=== PATIENT | male | born 1930 | race Caucasian/White ===

== ENCOUNTER → 2016-07-10 | Outpatient (CLI) | payer MEDICARE, BC ==
[~2016-07-10] MED LIST: ACET-732 PO; ASPI-611 PO; BENA40TA PO; CEPH-583 PO; DOCU-129 PO; FURO-154 PO; LATA2.5D6 BOTH EYES; LEVO100T85 PO; LINA145C PO; MEMA28CA PO; METF-203 PO; METO50TA5 PO; ONDA4TAB7 PO; RIVA3CAP5 PO; ROBITUSSIN DM PO; SENN-111 PO
[2016-07-10 07:15] LABS: ANION GAP 10 MEQ/L (5-15); BUN/CREATININE RATIO 17 RATIO (6-26); CALCIUM 8.7 MG/DL (8.4-10.2); CHLORIDE 97 MEQ/L (98-107); CO2 - CARBON DIOXIDE 27 MEQ/L (22-30); CREATININE 0.7 MG/DL (0.8-1.5); GLOMERULAR FILTRATION RATE 107; GLUCOSE 85 MG/DL (75-110); POTASSIUM 4.1 MEQ/L (3.6-5); SODIUM 134 MEQ/L (134-144)
[2016-07-10 07:26] LABS: HEMOGLOBIN A1C 6.3 % (6.1-7.9)
== END ==
LOC: LABNH.PM 00:24
PROVIDERS: ATTEND Family Medicine
DX: E11.9 Type 2 diabetes mellitus without complications (principal); R35.8 Other polyuria
CPT/HCPCS: 36415; 80048; 83036; P9604